=== PATIENT | female | born 1995 | race Caucasian/White ===

== ENCOUNTER 2017-07-28 06:12 | Emergency (ER) | payer OTHER ==
[~2017-07-28] VITALS: Ht 157.5 cm; Wt 43.1 kg
[2017-07-28] MEDS ORDERED: LORATADINE 10 MG TABLET (06:22)
[2017-07-28] MEDS ORDERED: OLOPATADINE HCL 0.1% (06:22)
[2017-07-28] MEDS ORDERED: EYE (06:22)
[2017-07-28] MEDS ORDERED: predniSONE 20 MG TABLET PO ONE (06:45)
[2017-07-28] MEDS ORDERED: predniSONE 20 MG TABLET ONE (06:47)
--- NOTE | 2017-07-28 06:48 | NUR ---
Patient discharged to home in stable conditon. Written and verbal after care instructions given. Patient verbalizes understanding of instructions. Patient able to ambulate unassisted with steady gait. Patient left with all personal belongings.
[2017-07-28 06:51] VITALS: BP 129/70
== END 2017-07-28 06:48 | disposition home or self-care (01) ==
LOC: ER 06:12
DX: T78.40XA Allergy, unspecified, initial encounter (principal)
CPT/HCPCS: A4663; J7512

== ENCOUNTER 2018-01-31 12:52 | Emergency (ER) | payer OTHER ==
[~2018-01-31] VITALS: Ht 157.5 cm; Wt 45.4 kg
[~2018-01-31 12:52] MED LIST: EYE; LORATADINE 10 MG TABLET; OLOPATADINE HCL 0.1%
--- NOTE | 2018-01-31 13:27 | NUR ---
PT IS IN ROOM #2A. DR BULLOCK EVALUATED THE PT.
--- NOTE | 2018-01-31 13:43 | NUR ---
PT WAS D/C TO HOME. D/C INSTRUCTIONS GIVEN TO THE PT.
[2018-01-31 13:46] VITALS: BP 136/77
== END 2018-01-31 13:47 | disposition home or self-care (01) ==
LOC: ER 12:52
DX: J06.9 Acute upper respiratory infection, unspecified (principal); F17.200 Nicotine dependence, unspecified, uncomplicated
CPT/HCPCS: A4663

== ENCOUNTER 2018-11-19 14:15 | Emergency (ER) | payer OTHER ==
[~2018-11-19] VITALS: Ht 157.5 cm; Wt 45.4 kg
[2018-11-19] MEDS ORDERED: NAPROXEN 500 MG TABLET PO ONE (14:45)
[2018-11-19] MEDS ORDERED: NAPROXEN 500 MG TABLET ONE (14:48)
--- NOTE | 2018-11-19 14:49 | NUR ---
Patient discharged to home in stable conditon. Written and verbal after care instructions given. Patient verbalizes understanding of instructions. ALL BELONGINGS W/ PT. PT SELF-AMBULATED W/O DIFFICULTY.
[2018-11-19 14:50] VITALS: BP 131/76
== END 2018-11-19 14:50 | disposition home or self-care (01) ==
LOC: ER 14:15
DX: J02.9 Acute pharyngitis, unspecified (principal); H66.92 Otitis media, unspecified, left ear; F17.200 Nicotine dependence, unspecified, uncomplicated; Z79.899 Other long term (current) drug therapy

== ENCOUNTER 2019-02-27 13:50 | Emergency (ER) | payer OTHER ==
[~2019-02-27] VITALS: Ht 157.5 cm; Wt 45.4 kg
--- NOTE | 2019-02-27 14:32 | NUR ---
Patient discharged to home in stable conditon. Written and verbal after care instructions given. Patient verbalizes understanding of instructions.
== END 2019-02-27 14:33 | disposition home or self-care (01) ==
LOC: ER 13:50
DX: J40 Bronchitis, not specified as acute or chronic (principal); R04.2 Hemoptysis; F17.200 Nicotine dependence, unspecified, uncomplicated; Z79.899 Other long term (current) drug therapy
CPT/HCPCS: 71045; A4663

== ENCOUNTER 2019-03-29 19:35 | Emergency (ER) | payer OTHER ==
[~2019-03-29] VITALS: Ht 157.5 cm; Wt 45.4 kg
--- NOTE | 2019-03-29 20:03 | NUR ---
Patient ambulated with stable gait. Speech is clear, speaks in complete sentences. No acute neuro deficits noted. Patient came for c/o right nasal pain s/p fall yesterday around 1400. Denies any LOC, or syncope, patient stated she just lost her "footing" while horsing around at her house. PERRLA Respiratory even and unlabored, no cough no sob. Friend at bedside accompanying patient. Safety precautions implemented per protocol.
[2019-03-29] MEDS ORDERED: HYDROCODONE/APAP 10-325 MG TABLET ONE (20:54)
--- NOTE | 2019-03-29 20:58 | NUR ---
Patient discharged to home in stable conditon. Written and verbal after care instructions given. Patient verbalizes understanding of instructions. Patient ambulated with stable gait.
[2019-03-29 20:59] VITALS: BP 129/68
[2019-03-29] MEDS ORDERED: HYDROCODONE/APAP 10-325 MG TABLET PO ONE (21:00)
== END 2019-03-29 20:59 | disposition home or self-care (01) ==
LOC: ER 19:39
DX: S02.2XXA Fracture of nasal bones, initial encounter for closed fracture (principal); F17.200 Nicotine dependence, unspecified, uncomplicated; Z79.899 Other long term (current) drug therapy; W22.8XXA Striking against or struck by other objects, initial encounter; Y93.89 Activity, other specified; Y92.89 Other specified places as the place of occurrence of the external cause; Y99.8 Other external cause status
CPT/HCPCS: 70160; A4663

== ENCOUNTER 2020-09-30 15:41 | Emergency (ER) | payer OTHER ==
[~2020-09-30] VITALS: Ht 157.5 cm; Wt 45.4 kg
--- NOTE | 2020-09-30 16:57 | NUR ---
PT WAS EVALUATED BY DR BULLOCK. PT WAS D/C'd TO HOME. D/C INSTRUCIONS GIVEN TO THE PT.
[2020-09-30 16:58] VITALS: BP 121/69
== END 2020-09-30 16:59 | disposition home or self-care (01) ==
LOC: ER 15:41
DX: B35.2 Tinea manuum (principal)
CPT/HCPCS: A4663